=== PATIENT | male | born 1960 | race Asian ===

== ENCOUNTER 2017-03-18 17:14 | Emergency (ER) | payer BC ==
[~2017-03-18] VITALS: Wt 63.5 kg
[~2017-03-18 17:14] MED LIST: ASPI-650; ATOR20TA17; FLUO10TA PO; GLYB1TAB3; INHALER; LISI10TA2; METF500T4 PO; OMEP20CA9 PO; PIOG45TA6
[2017-03-18] MEDS ORDERED: FLUC150T17 PO (18:20)
[2017-03-18] MEDS ORDERED: CLOT30CR24 TOP (18:20)
[2017-03-18] MEDS ORDERED: HYDR-3011 PO (18:20)
--- NOTE | 2017-03-18 18:31 | ERD ---
ER Documentation Chief Complaint Date/Time DATE: 03/18/17 TIME: 18:28 Chief Complaint RASH AND BURNING SENSATION ON TESTICULAR AREA FOR THE PAST 2 WKS. HPI 57-year-old male presents to the department for complaints of burning sensation in the penile area perineal area that has been going on for 2 weeks, patient was seen by primary care doctor, was not evaluated in that area, which is given triamcinolone cream to apply on affected area, states that it has not been helping. Patient is complaining of itching. Patient denies any penile discharge. Patient is diabetic. Patient is complaining of burning pain 4/10 scale, as was upon touching the area. Patient denies any fever or chills ROS All systems reviewed and are negative except as per history of present illness. Medications Home Meds Active Scripts Hydroxyzine Hcl* (Hydroxyzine Hcl*) 25 Mg Tablet, 25 MG PO Q8H Y for ITCHING, # 30 TAB Prov:ANMOL ECHOLS NP 03/18/17 Fluconazole* (Diflucan*) 150 Mg Tablet, 150 MG PO ONCE, #1 TAB Prov:ANMOL ECHOLS NP 03/18/17 Clotrimazole* (Clotrimazole* AF) 1% - 30 Gm Cream.gm., 1 APPLIC TOP BID for 7 Days, TUB Prov:ANMOL ECHOLS NP 03/18/17 Reported Medications Metformin* (Glucophage*) 500 Mg Tab, 500 MG PO BID 12/17/12 Omeprazole* (Prilosec*) 20 Mg Capsule.dr, 20 MG PO DAILY 12/17/12 [Inhaler] No Conflict Check, Y 03/26/12 Fluoxetine Hcl* (Fluoxetine Hcl*) 10 Mg Tablet, 10 MG PO DAILY 03/26/12 Pioglitazone Hcl* (Actos*) 45 Mg Tablet 01/24/11 Lisinopril* (Lisinopril*) 10 Mg Tablet 01/24/11 Atorvastatin (Lipitor) 20 Mg Tablet 12/24/10 Aspirin (Aspirin) 81 Mg Tablet 12/24/10 Glyburide, Micro-Metformin Hcl (Glucovance) 1 Tab Tablet 12/24/10 Allergies Allergies: Coded Allergies: No Known Drug Allergies (Verified Allergy, Mild, 03/18/17) PMhx/Soc History of Surgery: Yes (colon surgery) Anesthesia Reaction: No Hx Neurological Disorder: No Hx Respiratory Disorders: No Hx Psychiatric Problems: No Hx Miscellaneous Medical Probl: Yes (dm) Hx Alcohol Use: Yes Hx Substance Use: No Hx Tobacco Use: No Smoking Status: Never smoker FmHx Family History: No coronary disease, No diabetes, No other Physical Exam Vitals Vital Signs Date Time Temp Pulse Resp B/P Pulse Ox O2 Delivery O2 Flow Rate FiO2 03/18/17 17:17 98.8 86 20 151/75 99 Physical Exam GENERAL: The patient is well developed and appropriate for usual state of health, in no apparent distress. CHEST: Clear to auscultation bilaterally. There are no rales, wheezes or rhonchi. HEART: Regular rate and rhythm. No murmurs, clicks, rubs or gallops. No S3 or S4. ABDOMEN: Soft, nontender and nondistended. Good bowel sounds. No rebound or guarding. No gross peritonitis. No gross organomegaly or masses. No Norman sign or McBurney point tenderness. BACK: No midline or flank tenderness. EXTREMITIES: Equal pulses bilaterally. There is no peripheral clubbing, cyanosis or edema. No focal swelling or erythema. Full range of motion. Grossly neurovascularly intact. NEURO: Alert and oriented. Cranial nerves 2-12 intact. Motor strength in all 4 extremities with 5/5 strength. Sensation grossly intact. Normal speech and gait. SKIN: Noted erythema with satellite lesions noted in the right groin area, maceration noted. There is no apparent ecchymosis or petechia. The skin is warm and dry. HEMATOLOGIC AND LYMPHATIC: There is no evidence of excessive bruising or lymphedema. No gross cervical, axillary, or inguinal lymphadenopathy. Procedures/MDM Medical decision making: Patient symptoms most likely is consistent with Regina intertrigo, no symptoms of any MRSA infection at this time, no symptoms of sepsis at this time. No symptoms of any penile discharge. No scrotal swelling, scrotal tenderness noted. Low suspicion for orchitis, testicular torsion. Patient was advised to follow-up with primary care doctor in 2-3 days for reevaluation of symptoms. Patient was advised to return to emergency department for any worsening symptoms. Disposition: Home. Stable. Departure Diagnosis: Primary Impression: Candidiasis, intertrigo Condition: Stable Patient Instructions: Regina Skin Infection (Adult) ANMOL ECHOLS NP Mar 18, 2017 18:31
== END 2017-03-18 19:11 | disposition home or self-care (01) ==
LOC: FTE 17:14
DX: B37.2 Candidiasis of skin and nail (principal); E11.9 Type 2 diabetes mellitus without complications; Z79.82 Long term (current) use of aspirin; Z79.84 Long term (current) use of oral hypoglycemic drugs
CPT/HCPCS: 99284

== ENCOUNTER 2018-09-14 21:54 | Emergency (ER) | payer BC ==
[~2018-09-14] VITALS: Wt 57.2 kg
[~2018-09-14 21:54] MED LIST changes: +CLOT30CR24 TOP; +FLUC150T PO; +HYDR-843 PO; +METF-849 PO; -METF500T4 PO; -PIOG45TA6; +PIOG45TA9
[2018-09-14] MEDS ORDERED: FLUORESCEIN STRIP RIGHT EYE ONE (22:30)
[2018-09-14] MEDS ORDERED: TETRACAINE 0.5% 4 ML OPH RIGHT EYE ONE (22:30)
--- NOTE | 2018-09-14 22:38 | ERD ---
ER Documentation Chief Complaint Chief Complaint POKED HIMSELF IN RIGHT EYE HPI 58-year-old male presents here to emergency department for complaints of right eye pain after accidentally poking himself in the right eye with his finger. Patient is complaining of pain burning pain 6/10 scale, not better or worse with anything, unable to open the right eye because of the pain. Patient did not take medications patient denies any history, ROS All systems reviewed and are negative except as per history of present illness. Medications Home Meds Active Scripts Hydroxyzine Hcl* (Hydroxyzine Hcl*) 25 Mg Tablet, 25 MG PO Q8H PRN for ITCHING, #30 TAB Prov:ANMOL ECHOLS NP 03/18/17 Fluconazole* (Diflucan*) 150 Mg Tablet, 150 MG PO ONCE, #1 TAB Prov:ANMOL ECHOLS NP 03/18/17 Clotrimazole* (Clotrimazole* AF) 1% - 30 Gm Cream.gm., 1 APPLIC TOP BID for 7 Days, TUB Prov:ANMOL ECHOLS NP 03/18/17 Reported Medications Metformin* (Glucophage*) 500 Mg Tab, 500 MG PO BID 12/17/12 Omeprazole* (Prilosec*) 20 Mg Capsule.dr, 20 MG PO DAILY 12/17/12 [Inhaler] No Conflict Check, PRN 03/26/12 Fluoxetine Hcl* (Fluoxetine Hcl*) 10 Mg Tablet, 10 MG PO DAILY 03/26/12 Pioglitazone Hcl* (Actos*) 45 Mg Tablet 01/24/11 Lisinopril* (Lisinopril*) 10 Mg Tablet 01/24/11 Atorvastatin (Lipitor) 20 Mg Tablet 12/24/10 Aspirin (Aspirin) 81 Mg Tablet 12/24/10 Glyburide, Micro-Metformin Hcl (Glucovance) 1 Tab Tablet 12/24/10 Allergies Allergies: Coded Allergies: No Known Drug Allergies (Verified Allergy, Mild, 03/18/17) PMhx/Soc History of Surgery: Yes (colon surgery) Anesthesia Reaction: No Hx Neurological Disorder: No Hx Respiratory Disorders: No Hx Psychiatric Problems: No Hx Miscellaneous Medical Probl: Yes (dm) Hx Alcohol Use: No Hx Substance Use: No Hx Tobacco Use: No Smoking Status: Never smoker FmHx Family History: No diabetes, No coronary disease, No other Physical Exam Vitals Vital Signs Date Temp Pulse Resp B/P (MAP) Pulse Ox O2 O2 Flow FiO2 Time Delivery Rate 09/14/18 97.6 87 18 184/83 99 21:58 (116) Physical Exam GENERAL: The patient is well developed and appropriate for usual state of health, in no apparent distress. HEENT: Atraumatic. Bilateral eyes are PERRLA EOM intact. Ears: Normal tympanic membrane, no erythema or bulging. No ear canal swelling. No ear discharge. Nose: normal nasal turbinates, no erythema or swelling. Normal nasal discharge. Throat: oropharynx clear. No tonsillar swelling or tonsillar exudates. No lymphadenopathy. CHEST: Clear to auscultation bilaterally. There are no rales, wheezes or rhonchi. HEART: Regular rate and rhythm. No murmurs, clicks, rubs or gallops. No S3 or S4. ABDOMEN: Soft, nontender and nondistended. Good bowel sounds. No rebound or guarding. No gross peritonitis. No gross organomegaly or masses. No Norman sign or McBurney point tenderness. BACK: No midline or flank tenderness. EXTREMITIES: Equal pulses bilaterally. There is no peripheral clubbing, cyanosis or edema. No focal swelling or erythema. Full range of motion. Grossly neurovascularly intact. NEURO: Alert and oriented. Cranial nerves 2-12 intact. Motor strength in all 4 extremities with 5/5 strength. Sensation grossly intact. Normal speech and gait. SKIN: There is no apparent rash or petechia. The skin is warm and dry. HEMATOLOGIC AND LYMPHATIC: There is no evidence of excessive bruising or lymphedema. No gross cervical, axillary, or inguinal lymphadenopathy. Results 24 hrs Current Medications Medications Dose Sig/Dmitri Start Time Status Last (Trade) Ordered Route PRN Stop Time Admin Dose Reason Admin Fluorescein 1 strip ONCE ONCE 09/14/18 DC Sodium RIGHT EYE 22:30 09/14/18 ([id number]-Mqde 22:31 p) Tetracaine 1 drop ONCE ONCE 09/14/18 DC HCl RIGHT EYE 22:30 09/14/18 (Tetracaine 22:31 0.5% Steri-Unit Tasha) Procedure Note: After obtaining informed consent, the R eye was stained using fluorescein dye. After staining the eye, A Wood's lamp was used to evaluate the eye. There is no foreign body noted in the eye. corneal abrasion noted. Patient tolerated procedure well. Procedures/MDM Medical Decision making: Symptoms consistent with a corneal abrasion, noted in the eye, no foreign body. No vision changes. No hyphema no global rupture, no symptoms of any other eye emergencies. Prescription was given for Cipro ophthalmic solution, [place] for pain ibuprofen for mild to moderate pain, was advised to return to emergency department for any worsening symptoms, see eye doctor within 1-2 days. Disposition: Home. Stable Departure Diagnosis: Primary Impression: Corneal abrasion Encounter type: initial encounter Laterality: right Qualified Codes: S05.01XA - Injury of conjunctiva and corneal abrasion without foreign body, right eye, initial encounter Condition: Stable Patient Instructions: Corneal Abrasion ANMOL ECHOLS NP Sep 14, 2018 22:38
[2018-09-14] MEDS ORDERED: IBUP-1542 PO (22:48)
[2018-09-14] MEDS ORDERED: CIPR2.5D11 OP (22:48)
[2018-09-14] MEDS ORDERED: HYDR-4011 PO (22:48)
[2018-09-14 23:12] VITALS: BP 159/78; PULSE 89; RESP 18
== END 2018-09-14 23:23 | disposition home or self-care (01) ==
LOC: FTE 21:54
DX: S05.01XA Injury of conjunctiva and corneal abrasion without foreign body, right eye, initial encounter (principal); E11.9 Type 2 diabetes mellitus without complications; X58.XXXA Exposure to other specified factors, initial encounter; Y92.9 Unspecified place or not applicable; Z79.82 Long term (current) use of aspirin; Z79.84 Long term (current) use of oral hypoglycemic drugs
CPT/HCPCS: 99283; Z7610

== ENCOUNTER 2019-04-05 16:20 | Observation (INO) | payer BC ==
[~2019-04-05] VITALS: Ht 165.1 cm; Wt 58.4 kg
[~2019-04-05 16:20] MED LIST changes: +ASPI-817 PO; +ATOR10TA65 PO; +CIPR2.5D11 OP; +DOCU100T PO; +ERGO500013 PO; +FLUO10CA17 PO; +GLIM4TAB PO; +GLYB5TAB3 PO; +HYDR-4011 PO; +IBUP-1542 PO; +LISI10TA2 PO; +METF100010 PO; +METO-429 PO
[2019-04-05] MEDS ORDERED: KETOROLAC 15 MG INJ IV STA (17:19)
[2019-04-05] MEDS ORDERED: ASPIRIN 81 MG TAB PO ONE (17:30)
[2019-04-05 21:10] VITALS: BP 180/92; PULSE 83; RESP 18
[2019-04-05] MEDS ORDERED: ZOLPIDEM 5 MG TAB PO PRN (21:30)
[2019-04-05] MEDS ORDERED: ONDANSETRON 4 MG INJ IV PRN (22:30)
[2019-04-05] MEDS ORDERED: ACETAMINOPHEN 325 MG TAB PO PRN (22:30)
[2019-04-05] MEDS: METOPROLOL 50 MG TAB PO SCH (22:35)
[2019-04-05 23:14] VITALS: Ht 165.1 cm; Wt 58.4 kg
[2019-04-06] VITALS (8 sets, daily range): BP systolic 129–173; BP diastolic 64–94; PULSE 60–72; RESP 16–20
[2019-04-06] MEDS: FLUOXETINE 10 MG CAP PO SCH (08:36)
[2019-04-06] MEDS: ASPIRIN (EC) 81 MG TAB PO SCH (08:36)
[2019-04-06] MEDS: METOPROLOL 50 MG TAB PO SCH ×2 (08:37→20:39)
[2019-04-06] MEDS ORDERED: GLUCOSE GEL 15 GRAM TUBE BUCCAL PRN (11:30)
[2019-04-06] MEDS ORDERED: GLUCAGON 1 MG INJ IM PRN (11:30)
[2019-04-06] MEDS ORDERED: GLUCOSE GEL 15 GRAM TUBE PO PRN ×2 (11:30)
[2019-04-06] MEDS ORDERED: DEXTROSE 50% 50 ML SYRINGE IV PRN ×2 (11:30)
[2019-04-06] MEDS: INSULIN ASPART [NOVOLOG] 3 ML PEN SC SCH ×4 (12:00→21:10)
[2019-04-06] MEDS ORDERED: REGADENOSON 0.4 MG/5 ML SYG ONE (15:02)
[2019-04-06] MEDS: LISINOPRIL 20 MG TAB PO SCH (17:31)
[2019-04-06] MEDS ORDERED: ATORVASTATIN 10 MG TAB PO SCH (21:00)
[2019-04-07 04:00] VITALS: BP 97/51; PULSE 60; RESP 19
[2019-04-07] MEDS: INSULIN ASPART [NOVOLOG] 3 ML PEN SC SCH (07:44)
[2019-04-07 08:01] VITALS: BP 119/66; PULSE 80; RESP 18
[2019-04-07] MEDS: LISINOPRIL 20 MG TAB PO SCH (08:07)
[2019-04-07] MEDS: METOPROLOL 50 MG TAB PO SCH (08:07)
[2019-04-07] MEDS: FLUOXETINE 10 MG CAP PO SCH (08:08)
[2019-04-07] MEDS: ASPIRIN (EC) 81 MG TAB PO SCH (08:08)
[2019-04-07 11:10] VITALS: BP 111/65; PULSE 63; RESP 18
== END 2019-04-07 11:40 | disposition home or self-care (01) ==
LOC: E/R 16:20 → 6WM 19:31
PROVIDERS: ADMIT Internal Medicine; ATTEND Internal Medicine
DX: R07.89 Other chest pain (principal); I10 Essential (primary) hypertension; E11.9 Type 2 diabetes mellitus without complications; E78.5 Hyperlipidemia, unspecified; I42.9 Cardiomyopathy, unspecified; Z79.82 Long term (current) use of aspirin; Z79.84 Long term (current) use of oral hypoglycemic drugs; Z85.038 Personal history of other malignant neoplasm of large intestine
CPT/HCPCS: 36415; 71045; 78452; 80053; 82962; 83690; 83880; 84484; 85025; 93005; 93017; 93306; 96374; 99285; A9500; A9505; J1815; J1885; J2785; Z7500; Z7610; 99217; G0378